=== PATIENT | female | born 1980 | race African-American/Black ===

== ENCOUNTER 2020-11-16 13:38 | Emergency (ER) | payer OTHER ==
[~2020-11-16] VITALS: Ht 170.2 cm; Wt 54.4 kg
[2020-11-16] MEDS ORDERED: BENZ-13 PO (14:52)
[2020-11-16] MEDS ORDERED: CETI-90 PO (14:53)
--- NOTE | 2020-11-16 15:05 | NUR ---
PT IS MEDICALLY CLEARED FOR BOOKING AND RELEASED UNDER THE CARE OF [employer]. PT IS IN STABLE CONDITION FOR TRANSPORT. PT WAS GIVEN RX WELL DISCHRGED TEACHING.
--- NOTE | 2020-11-16 15:06 | NUR ---
PT IS AMBULATORY ON STEADY GAIT
[2020-11-16 15:07] VITALS: BP 120/90
== END 2020-11-16 15:08 ==
LOC: ER 13:40
DX: R05 Cough (principal); I10 Essential (primary) hypertension; Z60.2 Problems related to living alone; Z79.899 Other long term (current) drug therapy